=== PATIENT | female | born 1980 | race Caucasian/White ===

== ENCOUNTER 2016-07-09 06:08 | Inpatient (IN) | payer MEDICAID ==
[2016-07-09] VITALS (102 sets, daily range): BP systolic 82–127; BP diastolic 47–101; PULSE 58–253; RESP 16–19; TEMP 97.8–98.3; O2SAT 97–100
[~2016-07-09] VITALS: Ht 167.6 cm; Wt 79.4 kg
[2016-07-09] MEDS: LACTATED RINGER'S 1000 ML IV SCH ×4 (07:00→23:41)
[2016-07-09] MEDS ORDERED: ONDANSETRON HCL 4 MG/2 ML VIAL IV PRN ×2 (07:15→08:00)
[2016-07-09] MEDS ORDERED: LACTATED RINGER'S 1000 ML BOLUS IV PRN (07:15)
[2016-07-09] MEDS ORDERED: LIDOCAINE HCL 1% 50 ML VIAL I-DERMAL PRN ×2 (07:15→08:00)
[2016-07-09] MEDS ORDERED: CITRIC ACID-SODIUM CITRATE LIQ 30 ML UDC PO SCH ×2 (07:15→08:00)
[2016-07-09] MEDS ORDERED: NS 500 ML BOLUS IV PRN (07:15)
[2016-07-09] MEDS ORDERED: NS 1000 ML IV PRN (07:15)
[2016-07-09] MEDS ORDERED: LIDOCAINE HCL 1% 50 ML VIAL INFIL PRN ×2 (07:15→08:00)
[2016-07-09] MEDS ORDERED: MINERAL OIL 10 ML VIAL TOPICAL PRN ×2 (07:15→08:00)
[2016-07-09] MEDS ORDERED: OXYTOCIN 30 UNITS 500ML PREMIX IV ONE (07:15)
[2016-07-09 07:38] LABS: AUTOMATED NEUTROPHIL # 5.7 TH/MM3 (1.8-7.7); BASOPHIL % 0.3 % (0.0-2.0); EOSINOPHIL % 0.5 % (0.0-4.0); HEMATOCRIT 28.2 % (35.0-46.0); HEMO FLAGS DIFF FINAL; LYMPH % 18.5 % (9.0-44.0); LYMPHOCYTE # 1.4 TH/MM3 (1.0-4.8); MEAN CELL VOLUME 89.4 FL (80.0-100.0); MEAN CORPUSCULAR HEMOGLOBIN 30.7 PG (27.0-34.0); MEAN CORPUSCULAR HGB CONC 34.3 % (32.0-36.0); MONO % 5.6 % (0.0-8.0); NEUT % 75.1 % (16.0-70.0); PLATELET COUNT 171 TH/MM3 (150-450); RED BLOOD COUNT 3.15 MIL/MM3 (4.00-5.30); RED CELL DISTRIBUTION WIDTH 12.9 % (11.6-17.2); WHITE BLOOD COUNT 7.6 TH/MM3 (4.0-11.0)
[2016-07-09 07:46] LABS: BACTERIA, URINE RARE /hpf; BLOOD, URINE NEG (NEG); COMMENT (UR) CULT NOT INDICATED; CULTURE IF INDICATED CULT NOT INDICATED; GLUCOSE,URINE NEG (NEG); KETONE, URINE NEG (NEG); NITRITE,URINE NEG (NEG); PH, URINE 6.5 (5.0-8.5); SQUAMOUS EPITHELIAL CELL URINE 19 /hpf (0-5); URINE COLOR LIGHT-YELLOW (YELLW/STRAW)
[2016-07-09] MEDS ORDERED: LACTATED RINGER'S 1000 ML INJ 1,000 ML IV PRN (07:47)
[2016-07-09] MEDS ORDERED: LACTATED RINGER'S 1000 ML INJ 1,000 ML IV SCH (07:47)
[2016-07-09] MEDS ORDERED: OXYTOCIN 30 UNITS-500ML PREMIX 500 ML IV SCH (08:00)
[2016-07-09] MEDS ORDERED: SODIUM CHLORID 0.9% 500 ML INJ 500 ML IV PRN (08:00)
[2016-07-09] MEDS ORDERED: OXYTOCIN 30 UNITS-500ML PREMIX 500 ML IV ONE (08:00)
--- NOTE | 2016-07-09 08:03 | HHI.HP ---
HPI Chief Complaint scheduled induction for new finding small for dates with AC <1%tile on office sono 07/08/16 Date Seen: Jul 09, 2016 Time Seen: 07:30 Travel History International Travel<30 Days: No Contact w/Intl Traveler<30Days: No Known Affected Area: No History of Present Illness HPI 36 yo with EDC 07/08/16 seen in office by Dr. Harman yesterday for routine visit including BPP due to 40 weeks. At time of eval contract associate noted appeared smaller than dates, so measurements were performed with finding of EFW 18%tile and AC <1%tile. Normal dopplers. Normal DANIKA 13cm. 88 BPP. Pt's care had previously been unremarkable with anatomy sono at 21 weeks showing normal growth/measurements. Pt's complicated only by AMA status and h/o CD with G1, successful x 3. Has h/ o MJ use and recurrent UTI in , has been on Macrobid suppression daily since 37 weeks due to recurrent infxn despite abx tx. Normal BP, urine dip neg yesterday in office. No significant travel history. Pain 0/10. Denies ctx, VB , LOF. Good FM. Informaseq & msAFP negative. Para: 4 : 9 Last Menstrual Period: Oct 02, 2015 Miscarriage: 2 : 2 History Past Medical History Narrative Medical AMA chronic anxiety chronic UTI in G9 Obstetric History Obstetric History 08/28/2000: CS 39 wks 7#2oz female , gastroschisis, surgery after , daughter healthy 01/20/2004: 29 wks 7#4oz female 05/14/2007: 38 wks 7#3oz female 12/27/2008: 38 wks 7#3oz female EAB x 2 with D&C x 2 SAB x 2 Past Surgical History Narrative Surgical 2000, with gastroschisis D&C x 2 for EAB Family History Narrative Family History FOB's sister with T21 Social History Alcohol Use: No Tobacco Use: No Substance Abuse: No Allergies-Medications (Allergen,Severity, Reaction): Coded Allergies: No Known Allergies (Unverified , 07/09/16) Review of Systems General / Constitutional: Weight Gain, No: Fever, Chills, Other Eyes: No: Diploplia, Blurred Vision, Visual changes, Pain, Photophobia HENT: No: Headaches, Vertigo, Lightheadedness Cardiovascular: No: Irregular Rhythm, Chest Pain or Discomfort, Palpitations, Tachycardia, Syncope, Varicosities, Edema, Cyanosis Respiratory: No: Cough, Short of Breath, Other Gastrointestinal: No: Nausea, Vomiting, Diarrhea Genitourinary: Pelvic Pain (pressure), No: Decreased Urinary Output, Oliguria Musculoskeletal: No: Limited ROM, Weakness, Cramping, Edema, Pain Skin: No Rash, No Itching, No Dryness, No Lumps, No Change in Pigmentation, No Change in Nails, No Alopecia, No Lesions Neurologic: No: Weakness, Dizziness, Syncope, Focal Abnormalities, Coordination Problem, Headache, Slurred Speech, Seizures Psychiatric: No: Depression, Suicidal Ideations, Homicidal Ideation Endocrine: No: Heat Intolerance, Cold Intolerance, Polydipsia, Polyuria, Other Physical Exam Narrative GENERAL: Well-nourished, well-developed patient. SKIN: Warm and dry. HEAD: Normocephalic and atraumatic. EYES: No scleral icterus. No injection or drainage. ENT: No nasal drainage noted. Mucous membranes pink. Airway patent. NECK: Supple, trachea midline. No JVD. CARDIOVASCULAR: Regular rate and rhythm without murmurs, gallops, or rubs. RESPIRATORY: Breath sounds equal bilaterally. No accessory muscle use. BREASTS: deferred. ABDOMEN/GI: Abdomen soft, non-tender, bowel sounds present, no rebound, no guarding Gravid to [40] weeks size Fundal Height: [37] GENITOURINARY: External Genitalia: intact and normal in appearance BUS glands: [wnl] Cervix: [mid] Dilatation: [2] Effacement: [th] Station: [-3] Presentation: [vtx, ballotable] Membranes: [intact] Uterine Contractions: [irregular] FHT's: Category: [I] Baseline: [150s] Reactive: [y] Variability: [y] Decels: [n] EXTREMITIES: No cyanosis or edema. BACK: Nontender without obvious deformity. No CVA tenderness. NEUROLOGICAL: Awake and alert. Motor and sensory grossly within normal limits. Five out of 5 muscle strength in all muscle groups. Normal speech. Data Data Vital Signs Reviewed: Yes Orders Complete Blood Count With Diff (07/09/16 06:56) Hold Clot (07/09/16 06:56) Abo/Rh Blood Type (07/09/16 06:56) Urinalysis - C+S If Indicated (07/09/16 06:56) Specimen To Be Collected PRN (07/09/16 06:56) Lactated Ringer's 1000 Ml Inj (Lr 1000 M (07/09/16 07:15) Lactated Ringer's 1000 Ml Inj (Lr 1000 M (07/09/16 07:15) Sodium Chlorid 0.9% 500 Ml Inj (Ns 500 M (07/09/16 07:15) Sodium Chlor 0.9% 1000 Ml Inj (Ns 1000 M (07/09/16 07:15) Lidocaine 1% Inj (50 Ml) (Xylocaine 1% I (07/09/16 07:15) Citric Acid-Sodium Citrate Liq (Bicitra (07/09/16 07:15) Ondansetron Inj (Zofran Inj) (07/09/16 07:15) Fentanyl Inj (Fentanyl Inj) (07/09/16 07:15) Fentanyl Inj (Fentanyl Inj) (07/09/16 07:15) Oxytocin 30 Units-500ml Premix (Pitocin (07/09/16 07:15) Lidocaine 1% Inj (50 Ml) (Xylocaine 1% I (07/09/16 07:15) Light Mineral Oil (Muri-Lube Oil) (07/09/16 07:15) Admit To Inpatient (07/09/16 ) Code Status (07/09/16 07:47) Vital Signs (Adult) .Per protocol (07/09/16 07:47) Activity Oob Ad Lizzie (07/09/16 07:47) Heart (07/09/16 07:47) Amnioinfusion (07/09/16 07:47) Urinary Catheter Management .ONCE (07/09/16 07:47) Diet Liquid (07/09/16 Lunch) Lactated Ringer's 1000 Ml Inj (Lr 1000 M (07/09/16 07:47) Lactated Ringer's 1000 Ml Inj (Lr 1000 M (07/09/16 07:47) Sodium Chlorid 0.9% 500 Ml Inj (Ns 500 M (07/09/16 08:00) Sodium Chlor 0.9% 1000 Ml Inj (Ns 1000 M (07/09/16 08:07) Lidocaine 1% Inj (50 Ml) (Xylocaine 1% I (07/09/16 08:00) Citric Acid-Sodium Citrate Liq (Bicitra (07/09/16 08:00) Ondansetron Inj (Zofran Inj) (07/09/16 08:00) Fentanyl Inj (Fentanyl Inj) (07/09/16 08:00) Fentanyl Inj (Fentanyl Inj) (07/09/16 08:00) Resp Oxygen Non Rebreathe Mask (07/09/16 ) ^ Epidural / Intrathecal Infus (07/09/16 07:47) Oxytocin 30 Units-500ml Premix (Pitocin (07/09/16 08:00) Lidocaine 1% Inj (50 Ml) (Xylocaine 1% I (07/09/16 08:00) Light Mineral Oil (Muri-Lube Oil) (07/09/16 08:00) Inpatient Certification (07/09/16 ) ^ Non Stress Test (07/09/16 07:47) Response To Medication .Post New Med Administration, Reaction (07/09/16 07:47) ^ Discontinue Medication (07/09/16 07:47) Oxytocin Drip (1-1-30) (07/09/16 08:00) Labs Laboratory Tests Test 07/09/16 06:26 White Blood Count 7.6 Red Blood Count 3.15 Hemoglobin 9.7 Hematocrit 28.2 Mean Corpuscular Volume 89.4 Mean Corpuscular Hemoglobin 30.7 Mean Corpuscular Hemoglobin 34.3 Concent Red Cell Distribution Width 12.9 Platelet Count 171 Mean Platelet Volume 8.1 Neutrophils (%) (Auto) 75.1 Lymphocytes (%) (Auto) 18.5 Monocytes (%) (Auto) 5.6 Eosinophils (%) (Auto) 0.5 Basophils (%) (Auto) 0.3 Neutrophils # (Auto) 5.7 Lymphocytes # (Auto) 1.4 Monocytes # (Auto) 0.4 Eosinophils # (Auto) 0.0 Basophils # (Auto) 0.0 CBC Comment DIFF FINAL Differential Comment Urine Color LIGHT-YELLOW Urine Turbidity HAZY Urine pH 6.5 Urine Specific [place] 1.006 Urine Protein NEG Urine Glucose (UA) NEG Urine Ketones NEG Urine Occult Blood NEG Urine Nitrite NEG Urine Bilirubin NEG Urine Urobilinogen LESS THAN 2.0 Urine Leukocyte Esterase SMALL Urine RBC 1 Urine WBC 5 Urine Squamous Epithelial 19 Cells Urine Bacteria RARE Microscopic Urinalysis Comment CULT NOT INDICATED Assessment/Plan Problem List: (1) Intrauterine growth restriction (IUGR) affecting care of mother, third trimester, single gestation (2) AMA (advanced maternal age) multigravida 35+ (3) Grand multipara (4) History of chronic urinary tract infection (5) History of delivery Assessment and Plan 36 yo with IUP at 40w1d admit for new finding AC <1%tile overall EFW 18% tile on office sono; induction for indication 1) AC<1%tile; new incidental finding at time of office sono to eval 40 wk DANIKA; dopplers wnl, DANIKA 13cm, 8/8 BPP; normal anatomy scan at 21 wks, normal informaseq & msAFP; no significant travel history; induction with pitocin/AROM planned 2) GBS neg 3) AMA: msAFP & informaseq wnl 4) h/o recurrent UTI in s/p abx tx & persistent infxn x 2; Macrobid ppx started daily at 37 wks 5) h/o anxiety & MJ use, aware 6) grandmultip: PPH precautions 7) h/o CD with successful x 3; aware, for low dose pit until can AROM & internalize (as necessary) 8) family planning: to get vasectomy 9) status: female, vtx, EFW 18% but AC <1% on office sono yesterday; Cat I tracing currently Discharge Planning routine 2-3 d PP Sonya Sawant MD Jul 09, 2016 08:03
[2016-07-09] MEDS ORDERED: SODIUM CHLOR 0.9% 1000 ML INJ 1,000 ML IV PRN (08:07)
[2016-07-09] MEDS ORDERED: fentaNYL 2MCG-BUPIV 0.125% INJ 100 ML ONE (20:15)
[2016-07-09] MEDS ORDERED: ePHEDrine/NS 25 MG/5 ML SYR ONE (20:36)
[2016-07-10] VITALS (99 sets, daily range): BP systolic 97–134; BP diastolic 35–81; PULSE 53–96; RESP 16–19; TEMP 98–98.6; O2SAT 96–100
[2016-07-10] MEDS ORDERED: fentaNYL 2MCG-BUPIV 0.125% INJ 100 ML ONE (04:07)
[2016-07-10] MEDS: LACTATED RINGER'S 1000 ML IV SCH (06:10)
[2016-07-10] MEDS ORDERED: CITRIC ACID-SODIUM CITRATE LIQ 30 ML UDC PO SCH (09:45)
[2016-07-10] MEDS ORDERED: ceFAZolin 2 GM PREMIX 50 ML IV SCH (09:45)
[2016-07-10] MEDS ORDERED: LACTATED RINGER'S 1000 ML IV SCH (10:00)
[2016-07-10] MEDS ORDERED: LACTATED RINGER'S 1000 ML IV ONE (10:00)
[2016-07-10] MEDS ORDERED: OXYTOCIN 10 UNIT/ML AMP ONE (10:08)
[2016-07-10] MEDS ORDERED: SODIUM CHLORIDE 0.9% FLUSH 10 ML FLUSH IV FLUSH PRN (10:30)
[2016-07-10] MEDS ORDERED: KETOROLAC TROMETHAMINE 60 MG/2 ML (IM) VIAL IM PRN (10:30)
[2016-07-10] MEDS ORDERED: ZOLPIDEM TARTRATE 5 MG TAB PO PRN (10:30)
[2016-07-10] MEDS ORDERED: ONDANSETRON HCL 4 MG/2 ML VIAL IV PUSH PRN (10:30)
[2016-07-10] MEDS ORDERED: OXYTOCIN 30 UNITS-500ML PREMIX 500 ML IV ONE (10:30)
[2016-07-10 11:00] LABS: BLOOD GAS BASE EXCESS -1.9 mmol/L (-2-2); BLOOD GAS O2 HGB SATURATION 5 % (90-100); CORD BLOOD GAS HCO3 25 mmol/L (21-29); CORD BLOOD GAS PCO2 68 mmHG (34-78); CORD BLOOD GAS PO2 7 mmHG (3.0-40.0)
[2016-07-10 11:01] LABS: DRAW SITE CORD BLOOD; STAT NO
--- NOTE | 2016-07-10 11:42 | PD.OB.DELI ---
Procedure Note Section Procedure Pre Op Diagnosis dilation with no descent face presentation right mentum anterior non reassuring strip Post Op Diagnosis: Post Op Diagnosis same as above with nuchal cord x 3 Performed by Shantel Sears Procedure: Repeat Low Transverse Sec Indication for delivery: Nonreassuring heart tracing, malposition Informed consent obtained: For anesthesia, For procedure Confirmed correct: Patient, Procedure, Site, Time-out taken Anesthesia: Epidural Monitoring during procedure: Blood pressure monitoring Urinary catheter: Inserted using sterile technique, To dependent drainage, ml urine output Sterile preparation: Duraprep, In usual fashion Position: Supine with wedge to left side Operative Features Skin Incision: Pfannenstiel Uterine Incision: Low transverse w/knife / blunt ext Membranes Ruptured: Previously Presentation: Face presentation Delivery of infant: Assisted : Female One Minute : 7 Five Minute : 9 Weight: 7 Status of infant: Viable, Cord blood, Umbilical cord, Nursery present Placenta delivered: Intact Medications: Antibiotics, Oxytocin Estimated blood loss: average Procedure tolerated: Well Maternal Condition: Stable Condition: Stable (dictated) Shantel Sears MD Jul 10, 2016 11:42
[2016-07-10] MEDS ORDERED: KETOROLAC TROMETHAMINE 60 MG/2 ML (IM) VIAL IM ONE (12:05)
[2016-07-10] MEDS ORDERED: ePHEDrine/NS 25 MG/5 ML SYR IV PRN (13:30)
[2016-07-10] MEDS ORDERED: fentaNYL 2MCG-BUPIV 0.125% 100 ML EPIDURAL SCH (14:00)
[2016-07-10] MEDS ORDERED: NO SYSTEM NARCOTICS PRN (14:00)
[2016-07-10] MEDS ORDERED: DO NOT ADMINISTER ANTICOAGULANTS PRN (14:00)
[2016-07-10] MEDS: oxyCODONE/ACETAMINOPHEN 5 MG/325 MG TAB PO PRN ×3 (14:10→22:47)
[2016-07-10] MEDS ORDERED: LACTATED RINGER'S 1000 ML INJ 1,000 ML IV SCH (15:29)
[2016-07-10] MEDS ORDERED: OXYTOCIN 30 UNITS-500ML PREMIX 500 ML IV PRN (20:30)
[2016-07-10] MEDS ORDERED: SODIUM CHLORIDE 0.9% FLUSH 10 ML FLUSH IV FLUSH SCH (21:00)
[2016-07-10] MEDS: IBUPROFEN 600 MG TAB PO PRN (22:47)
[2016-07-10] MEDS: DOCUSATE SODIUM 50 MG/SENNA 8.6 MG TAB PO PRN (22:47)
[2016-07-11 03:35] VITALS: BP 101/62; PULSE 68; RESP 17; TEMP 97.9; O2SAT 99
[2016-07-11] MEDS: oxyCODONE/ACETAMINOPHEN 5 MG/325 MG TAB PO PRN ×5 (03:41→21:35)
[2016-07-11 06:00] LABS: AUTOMATED NEUTROPHIL # 7.5 TH/MM3 (1.8-7.7); BASOPHIL % 0.1 % (0.0-2.0); EOSINOPHIL # 0.1 TH/MM3 (0-0.4); EOSINOPHIL % 1.1 % (0.0-4.0); HEMATOCRIT 24.4 % (35.0-46.0); HEMO FLAGS DIFF FINAL; LYMPH % 13.7 % (9.0-44.0); LYMPHOCYTE # 1.3 TH/MM3 (1.0-4.8); MEAN CELL VOLUME 89.3 FL (80.0-100.0); MEAN CORPUSCULAR HGB CONC 34.7 % (32.0-36.0); MONO % 5.6 % (0.0-8.0); NEUT % 79.5 % (16.0-70.0); PLATELET COUNT 141 TH/MM3 (150-450); RED BLOOD COUNT 2.73 MIL/MM3 (4.00-5.30); RED CELL DISTRIBUTION WIDTH 13.1 % (11.6-17.2); WHITE BLOOD COUNT 9.5 TH/MM3 (4.0-11.0)
[2016-07-11] MEDS: IBUPROFEN 600 MG TAB PO PRN ×3 (07:37→22:03)
[2016-07-11] MEDS: SIMETHICONE 80 MG CHEWABLE TAB PO PRN ×3 (07:43→22:03)
--- NOTE | 2016-07-11 09:28 | HHI.OB ---
Subjective Post Operative Day: 1 Remarks pain well controlled, able to void this am. yessenia po Objective Vitals/I&O Vital Signs Date Time Temp Pulse Resp B/P Pulse Ox O2 Delivery O2 Flow Rate FiO2 07/11/16 03:35 97.9 17 99 07/11/16 03:35 68 101/62 07/10/16 19:20 67 16 111/66 07/10/16 19:20 98.3 07/10/16 12:50 98.6 07/10/16 12:50 62 17 134/81 07/10/16 12:28 88 19 126/80 100 07/10/16 12:24 98.2 07/10/16 12:15 57 19 130/76 97 07/10/16 12:00 71 18 117/73 98 07/10/16 11:45 70 18 116/70 98 07/10/16 11:30 82 17 117/69 07/10/16 11:30 100 07/10/16 11:15 98.4 88 18 106/35 07/10/16 11:15 99 07/10/16 09:31 73 129/73 07/10/16 09:30 76 Result Diagram: 07/11/16 0537 Objective Remarks GENERAL: Well-nourished, well-developed patient. CARDIOVASCULAR: Regular rate and rhythm without murmurs, gallops, or rubs. RESPIRATORY: Breath sounds equal bilaterally. No accessory muscle use. ABDOMEN/GI: Abdomen soft, non-tender, bowel sounds present. Incision: dressing in place with min blood Fundus: Firm, non-tender at umbilicus. GENITOURINARY: Light to moderate bleeding. EXTREMITIES: No cyanosis or edema, non-tender, without signs of DVT. Medications and IVs Current Medications Medications (Trade) Dose Ordered Sig/[place] Route Start Time Stop Time Status Last Admin (NS 500 ml Inj) 500 ml @ 1,000 mls/hr BOLUS PRN IV 07/09/16 07:15 (fentaNYL INJ) 50 mcg Q1H PRN IV PUSH 07/09/16 07:15 07/09/16 18:44 (fentaNYL INJ) 100 mcg Q1H PRN IV PUSH 07/09/16 07:15 Mineral Oil 10 ml 10 ml UNSCH PRN TOPICAL 07/09/16 07:15 (Lr 1000 ml Inj) 1,000 ml @ 100 mls/hr Q10H IV 07/10/16 15:29 07/11/16 11:28 (NS Flush) 2 ml BID IV FLUSH 07/10/16 21:00 (NS Flush) 2 ml UNSCH PRN IV FLUSH 07/10/16 10:30 (Mylicon Chew) 80 mg QID PRN PO 07/10/16 10:30 07/11/16 07:43 (Percocet 5-325 Mg) 1 tab Q4H PRN PO 07/10/16 10:30 07/11/16 03:41 (Percocet 5-325 Mg) 2 tab Q4H PRN PO 07/10/16 10:30 07/11/16 07:37 (Emma-Colace) 2 tab Q12H PRN PO 07/10/16 10:30 07/10/16 22:47 (Ambien) 5 mg HS PRN PO 07/10/16 10:30 (M-M-R Ii Inj) 0.5 ml ONCE ONCE SQ 07/11/16 16:00 07/11/16 16:01 (Boostrix Inj) 0.5 ml ONCE ONCE IM 07/11/16 16:00 07/11/16 16:01 (Zofran Inj) 4 mg Q6H PRN IV PUSH 07/10/16 10:30 Miscellaneous Information No systemic narcotics to be given except... UNSCH PRN .XX 07/10/16 14:00 07/11/16 13:59 Miscellaneous Information DO NOT ADMINISTER ANY ANTICOAGUL... UNSCH PRN .XX 07/10/16 14:00 07/11/16 13:59 (fentaNYL 2MCG-BUPIV 0.125% INJ) 100 ml @ 0 mls/hr TITRATE EPIDURAL 07/10/16 14:00 (ePHEDrine/NS 25 MG/5 ML SYR) 10 mg UNSCH PRN IV 07/10/16 13:30 07/11/16 13:29 (Motrin) 600 mg Q6H PRN PO 07/10/16 19:30 07/11/16 07:37 Assessment/Plan Problem List: (1) Intrauterine growth restriction (IUGR) affecting care of mother, third trimester, single gestation (2) AMA (advanced maternal age) multigravida 35+ (3) Grand multipara (4) History of chronic urinary tract infection (5) History of delivery Assessment and Plan 36 yo s/p rltcd for arrest of descent, face presentation and nuchal cord x 3 1) pod 1- cont routine, supportive care 2) hx of anxiety- no current medication Discharge Planning routine 2-3 d Vivian Mason MD Jul 11, 2016 09:28
[2016-07-11] MEDS ORDERED: OXYC1TAB63 PO (09:29)
[2016-07-11] MEDS ORDERED: IBUP-232 PO (09:29)
--- NOTE | 2016-07-11 09:29 | HHI.DCPOC ---
Discharge Care Plan Diagnosis: (1) History of delivery Your Health Problems Are: delivery Report Symptoms to Your Doctor -Temperate above 100.5 degrees -Redness, of incision or excessive or foul smelling drainage -Unusual pain or calf pain -Increased vaginal bleeding -Painful or difficulty urinating -Feelings of extreme sadness or anxiety after 2 weeks Goals to Promote Your Health * To prevent worsening of your condition and complications * To maintain your health at the optimal level Directions to Meet Your Goals Take your medications as prescribed Follow your dietary instruction Follow activity as directed Ensure plenty of rest for recovery Drink fluids for hydration Keep your appointments as scheduled Take your immunizations and boosters as scheduled If your symptoms worsen call your PCP, if no PCP go to Urgent Care Center or Emergency Room Smoking is Dangerous to Your Health. Avoid second hand smoke Call the 24-hour crisis hotline for domestic abuse at Vivian Harman MD Jul 11, 2016 09:29
[2016-07-11] MEDS: DOCUSATE SODIUM 50 MG/SENNA 8.6 MG TAB PO PRN ×2 (12:36→21:36)
[2016-07-11] MEDS ORDERED: DIPHTH/TETANUS/ACEL PERTUSSIS (BOOSTER) 0.5 ML VIAL/PFS IM ONE (16:00)
[2016-07-11] MEDS ORDERED: MEASLES, MUMPS, RUBELLA VACCINE 0.5 ML VIAL SQ ONE (16:00)
--- NOTE | 2016-07-11 21:52 | MP ---
cc: TRAY FERRIS DATE OF SURGERY 07/10/16 PREOPERATIVE DIAGNOSIS Attempted induction with failure of descent due to face presentation basically face posterior, not a position that I could manipulate. Also there was no descent. POSTOPERATIVE DIAGNOSIS Confirmed the additional nuchal cord times two around the neck. PROCEDURE Repeat low transverse segment section ANESTHESIA Epidural with Duramorph SURGEON Artur Ferris MD [employer]ST[employer] House staff FINDINGS A living female without Apgars I believe of seven and eight and estimated weight was 7 pounds. She has a good cry right on the basinet. Cord blood and cord gas was obtained. The placenta was kind of fundal both anterior and posterior. It was removed intact with the three-vessel cord. It was not just sent to [facility] because of traveling to concerning areas. ESTIMATED BLOOD LOSS Average. COUNTS Sponge and needle count correct DISPOSITION Mom and baby tolerated procedure well. PROCEDURE IN DETAIL The patient was identified as Ca Demarco. The indication nonreassuring strip, lack of descent, complete deflexion and extension of the head at a high position. She was taken to the operating room where epidural was reinforced and Duramorph was placed. She was prepped and draped in usual sterile fashion in dorsal lithotomy position with weight off the vena cava. After assuring adequate analgesia a Pfannenstiel incision was made with a knife and taken down through the rectus fascia. The rectus fascia was then incised and taken off the rectus muscle. The rectus muscle was in the midline. The parieto-peritoneum was entered sharply and uterus assessed for position. The incision was made carefully to avoid the lobe of the placenta that was low and to avoid cutting the baby's face. It was extended bluntly and it was necessary to use the VAC and because I could not get the baby into an ideally flexed position without it, she was then delivered with a cord around the neck x3 and a she was allowed to have the cord pulse for about 25 seconds before it was cut x2 and she was handed over to the neonatology team in attending. Cord blood was obtained and then the placenta was delivered intact. The uterus was exteriorized. The placenta was removed and the uterus was cleaned with a lap sponge and closed with chromic. ADDENDUM After the placenta was delivered manually intact, the uterus was exteriorized, cleaned with a lap sponge and closed with chromic in a running interlocking fashion with a second horizontal layer. The uterus was then replaced in the abdominal cavity and then the abdominal cavity was irrigated. Then the abdominal muscle and peritoneum were closed in a running, non interlocking suture and the fascia was closed with a running, non interlocking suture. Then a subcutaneous layer was closed with 3-0 plain and the skin was closed with 4-0 Vicryl on a Chaitanya needle. Estimated blood loss was less than average. Sponge, instrument, needle count were correct. Mom and baby tolerated the procedure well and went to the recovery room in stable condition. MD CUCA Ordaz/ /11:12 AM /7:44 AM MTDDavida
[2016-07-12] MEDS: oxyCODONE/ACETAMINOPHEN 5 MG/325 MG TAB PO PRN ×5 (02:21→20:05)
[2016-07-12 07:35] VITALS: BP 117/78; PULSE 77; RESP 18; TEMP 97.9
[2016-07-12] MEDS: DOCUSATE SODIUM 50 MG/SENNA 8.6 MG TAB PO PRN ×2 (07:41→20:04)
[2016-07-12] MEDS: SIMETHICONE 80 MG CHEWABLE TAB PO PRN ×2 (07:41→16:06)
[2016-07-12] MEDS: IBUPROFEN 600 MG TAB PO PRN ×3 (07:42→22:30)
[2016-07-12] MEDS ORDERED: SENN1TAB PO (08:19)
--- NOTE | 2016-07-12 08:19 | HHI.OB ---
Subjective Post Operative Day: 2 Remarks s/p RLTCD for face presentation/arrest of descent in labor after failed IOL for IUGR at term Objective Vitals/I&O Vital Signs Date Time Temp Pulse Resp B/P Pulse Ox O2 Delivery O2 Flow Rate FiO2 07/12/16 07:35 97.9 77 18 117/78 Result Diagram: 07/11/16 0537 Objective Remarks GENERAL: Well-nourished, well-developed patient. CARDIOVASCULAR: Regular rate and rhythm without murmurs, gallops, or rubs. RESPIRATORY: Breath sounds equal bilaterally. No accessory muscle use. ABDOMEN/GI: Abdomen soft, non-tender, bowel sounds present. Incision: c/d/i, steri-strips in place Fundus: Firm, non-tender at umbilicus. GENITOURINARY: Light bleeding. EXTREMITIES: No cyanosis or edema, non-tender, without signs of DVT. Medications and IVs Current Medications Medications (Trade) Dose Ordered Sig/[place] Route Start Time Stop Time Status Last Admin (NS 500 ml Inj) 500 ml @ 1,000 mls/hr BOLUS PRN IV 07/09/16 07:15 (fentaNYL INJ) 50 mcg Q1H PRN IV PUSH 07/09/16 07:15 07/09/16 18:44 (fentaNYL INJ) 100 mcg Q1H PRN IV PUSH 07/09/16 07:15 (Muri-Lube Oil) 10 ml UNSCH PRN TOPICAL 07/09/16 07:15 (NS Flush) 2 ml BID IV FLUSH 07/10/16 21:00 (NS Flush) 2 ml UNSCH PRN IV FLUSH 07/10/16 10:30 (Mylicon Chew) 80 mg QID PRN PO 07/10/16 10:30 07/12/16 07:41 (Percocet 5-325 Mg) 1 tab Q4H PRN PO 07/10/16 10:30 07/11/16 03:41 (Percocet 5-325 Mg) 2 tab Q4H PRN PO 07/10/16 10:30 07/12/16 07:42 (Emma-Colace) 2 tab Q12H PRN PO 07/10/16 10:30 07/12/16 07:41 (Ambien) 5 mg HS PRN PO 07/10/16 10:30 Ondansetron HCl 4 mg 4 mg Q6H PRN IV PUSH 07/10/16 10:30 (fentaNYL 2MCG-BUPIV 0.125% INJ) 100 ml @ 0 mls/hr TITRATE EPIDURAL 07/10/16 14:00 (Motrin) 600 mg Q6H PRN PO 07/10/16 19:30 07/12/16 07:42 Assessment/Plan Problem List: (1) S/P repeat low transverse (2) Intrauterine growth restriction (IUGR) affecting care of mother, third trimester, single gestation (3) AMA (advanced maternal age) multigravida 35+ (4) Grand multipara (5) History of chronic urinary tract infection (6) History of delivery Assessment and Plan 36 yo s/p rltcd for arrest of descent, face presentation and nuchal cord x 3 1) pod 2 - cont routine, supportive care; having some burning pain at incision, relieved with percocet; reviewed proper wound care for discharge tmrw 2) hx of anxiety- no current medication; stable 3) hx or recurrent UTI in : was on Macrobid daily ppx, can discontinue now s/p delivery 4) dispo: d/c to home tmrw if meeting criteria Discharge Planning routine, 07/13/16 Sonya Sawant MD Jul 12, 2016 08:19
[2016-07-12] MEDS ORDERED: OXYC1TAB63 PO (08:20)
[2016-07-12 20:00] VITALS: BP 121/75; PULSE 66; RESP 15; TEMP 98.7
[2016-07-13] MEDS: oxyCODONE/ACETAMINOPHEN 5 MG/325 MG TAB PO PRN ×3 (00:07→09:23)
[2016-07-13] MEDS: SIMETHICONE 80 MG CHEWABLE TAB PO PRN ×2 (00:24→09:22)
[2016-07-13] MEDS: IBUPROFEN 600 MG TAB PO PRN ×2 (04:15→09:23)
[2016-07-13 09:00] VITALS: BP 123/79; PULSE 68; RESP 18; TEMP 98
[2016-07-13] MEDS: DOCUSATE SODIUM 50 MG/SENNA 8.6 MG TAB PO PRN (09:22)
--- NOTE | 2016-07-13 11:40 | HHI.OB ---
Subjective Post Operative Day: 3 Remarks Doing well ready to go home Baby is doing well Objective Vitals/I&O Vital Signs Date Time Temp Pulse Resp B/P Pulse Ox O2 Delivery O2 Flow Rate FiO2 07/13/16 09:00 98.0 18 07/13/16 09:00 68 123/79 07/12/16 20:00 121/75 07/12/16 20:00 98.7 66 15 Result Diagram: 07/11/16 0537 Objective Remarks GENERAL: Well-nourished, well-developed patient. CARDIOVASCULAR: Regular rate and rhythm without murmurs, gallops, or rubs. RESPIRATORY: Breath sounds equal bilaterally. No accessory muscle use. ABDOMEN/GI: Abdomen soft, non-tender, bowel sounds present. Incision: c/d/i, steri-strips in place Fundus: Firm, non-tender at umbilicus. GENITOURINARY: Light bleeding. EXTREMITIES: No cyanosis or edema, non-tender, without signs of DVT. Medications and IVs Current Medications Medications (Trade) Dose Ordered Sig/[place] Route Start Time Stop Time Status Last Admin (NS 500 ml Inj) 500 ml @ 1,000 mls/hr BOLUS PRN IV 07/09/16 07:15 (fentaNYL INJ) 50 mcg Q1H PRN IV PUSH 07/09/16 07:15 07/09/16 18:44 (fentaNYL INJ) 100 mcg Q1H PRN IV PUSH 07/09/16 07:15 (Muri-Lube Oil) 10 ml UNSCH PRN TOPICAL 07/09/16 07:15 (NS Flush) 2 ml BID IV FLUSH 07/10/16 21:00 (NS Flush) 2 ml UNSCH PRN IV FLUSH 07/10/16 10:30 (Mylicon Chew) 80 mg QID PRN PO 07/10/16 10:30 07/13/16 09:22 (Percocet 5-325 Mg) 1 tab Q4H PRN PO 07/10/16 10:30 07/12/16 20:05 (Percocet 5-325 Mg) 2 tab Q4H PRN PO 07/10/16 10:30 07/13/16 09:23 (Emma-Colace) 2 tab Q12H PRN PO 07/10/16 10:30 07/13/16 09:22 (Ambien) 5 mg HS PRN PO 07/10/16 10:30 Ondansetron HCl 4 mg 4 mg Q6H PRN IV PUSH 07/10/16 10:30 (fentaNYL 2MCG-BUPIV 0.125% INJ) 100 ml @ 0 mls/hr TITRATE EPIDURAL 07/10/16 14:00 (Motrin) 600 mg Q6H PRN PO 07/10/16 19:30 07/13/16 09:23 Assessment/Plan Problem List: (1) S/P repeat low transverse (2) Intrauterine growth restriction (IUGR) affecting care of mother, third trimester, single gestation (3) AMA (advanced maternal age) multigravida 35+ (4) Grand multipara (5) History of chronic urinary tract infection (6) History of delivery Assessment and Plan POD #3 Doing well Severe anemia will start fe after percocet Offered her venofer but she declined Discharge Planning routine, 07/13/16 Davin Ray MD Jul 13, 2016 11:40
== END 2016-07-13 12:25 | disposition home or self-care (01) | DRG 765 ==
LOC: H2EB 06:08 → H1EA 07-10 13:47
PROVIDERS: ADMIT Obstetrics & Gynecology; ATTEND Obstetrics & Gynecology
PROC: 10D00Z1 Extraction of Products of Conception, Low, Open Approach (ICD-10-PCS; principal; 2016-07-09)
PROC: 3E0R3CZ (ICD-10-PCS; 2016-07-09)
PROC: 00HU33Z Insertion of Infusion Device into Spinal Canal, Percutaneous Approach (ICD-10-PCS; 2016-07-09)
DX: O32.3XX0 Maternal care for face, brow and chin presentation, not applicable or unspecified (principal); O36.5930 Maternal care for other known or suspected poor fetal growth, third trimester, not applicable or unspecified; Z37.0 Single live birth; O34.211 Maternal care for low transverse scar from previous cesarean delivery; O32.4XX0 Maternal care for high head at term, not applicable or unspecified; O62.1 Secondary uterine inertia; O69.81X0 Labor and delivery complicated by cord around neck, without compression, not applicable or unspecified; O76 Abnormality in fetal heart rate and rhythm complicating labor and delivery; O99.02 Anemia complicating childbirth; D64.9 Anemia, unspecified; Z3A.37 37 weeks gestation of pregnancy; Z87.440 Personal history of urinary (tract) infections; O09.529 Supervision of elderly multigravida, unspecified trimester
CPT/HCPCS: 59025; 76815; 81001; 82805; 85025; 86900; 86901; J0690; J1885; J2590; J3010; J7120